=== PATIENT | male | born 1990 | race Caucasian/White ===

== ENCOUNTER 2016-10-31 18:04 | Emergency (ER) | payer OTHER ==
[~2016-10-31] VITALS: Ht 180.3 cm; Wt 75.5 kg
[2016-10-31 18:24] LABS: HEMATOCRIT 42.8 % (38.0-50.0); MCH 29.1 PG (29.0-34.0); MCHC 35.5 G/DL (30.0-36.0); MCV 81.8 FL (86-99); MEAN PLAT.VOLUME 8.8 uM^3 (9.0-12.4); PLATELET COUNT 224 K/uL (156-360); RBC DIS.WIDTH-CV 14.4 % (11.8-14.6); RED BLOOD COUNT 5.23 M/uL (4.00-5.50); WHITE BLOOD COUNT 3.6 K/uL (4.1-10.2)
[2016-10-31 18:33] LABS: CHLORIDE 104 mEq/L (99-109); POTASSIUM 3.8 mEq/L (3.7-5.4); SODIUM 139 mEq/L (136-147)
[2016-10-31 18:35] LABS: GLUCOSE 119 mg/dL (70-99)
[2016-10-31 18:36] LABS: ANION GAP 14 MEQ/L (2-14)
[2016-10-31 18:37] LABS: TOTAL BILIRUBIN 2.2 mg/dL (0.0-1.0)
[2016-10-31 18:39] LABS: ALKALINE PHOSPHATASE 75 IU/L (3-129); GFR ESTIMATE (CALCULATED) > 59 mL/min/
[2016-10-31 18:40] LABS: UREA NITROGEN (BUN) 12 mg/dL (9-23)
[2016-10-31 18:42] LABS: LIPASE 13 U/L (1.0-51.0)
[2016-10-31] MEDS ORDERED: MULTIVITAMIN1 EAC2 PO (19:05)
[2016-10-31 20:47] LABS: ADD MIUA? YES; BILIRUBIN NEGATIVE; BLOOD NEGATIVE; COLOR YELLOW ((YELLOW)); GLUCOSE (STRIP) NEGATIVE; KETONES 5; LEUKOCYTES NEGATIVE; NITRITE NEGATIVE; PROTEIN (STRIP) NEGATIVE; SPECIFIC GRAVITY 1.017 (1.000-1.030)
[2016-10-31] MEDS ORDERED: BENTYL20 MG PO (20:48)
[2016-10-31 21:12] LABS: BACTERIA NONE SEEN /HPF; EPITHELIAL CELLS NONE SEEN /HPF; MUCUS TRACE /LPF; RED BLOOD CELLS NONE SEEN /HPF (0-5); UCUL ADDED? NO; WHITE BLOOD CELLS NONE SEEN /HPF (0-5)
[2016-10-31 21:51] VITALS: BP 112/77
[2016-10-31 22:10] LABS: INTERNAL CONTROL VALID? YES; MONOSPOT (MONONUCLEOSIS SEROL) NEGATIVE
== END 2016-10-31 21:54 | disposition home or self-care (01) ==
LOC: EME 18:04
DX: R10.9 Unspecified abdominal pain (principal); R16.2 Hepatomegaly with splenomegaly, not elsewhere classified; D72.819 Decreased white blood cell count, unspecified
CPT/HCPCS: 74177; 80053; 81003; 83690; 85027; 86308; 99281; 99285; J7040